=== PATIENT | male | born 1975 | race African-American/Black ===

== ENCOUNTER 2019-07-12 08:29 | Inpatient (IN) ==
[2019-07-12] MEDS ORDERED: ATIVAN ONE (08:55)
[2019-07-12] MEDS ORDERED: ASPIRIN PO ONE (08:56)
[2019-07-12] MEDS ORDERED: ASPIRIN PR ONE (08:56)
[2019-07-12] MEDS ORDERED: ZOFRAN IV ONE (08:56)
[2019-07-12] MEDS ORDERED: ATIVAN IV ONE (08:56)
[2019-07-12] MEDS ORDERED: ZOFRAN ONE (08:59)
--- NOTE | 2019-07-12 09:04 | PROVIDER DOCUMENTATION ---
HPI-Chest Pain - General Stated Complaint: CP, VOMITING, FACIAL DROOPING Time Seen by Provider: 07/12/19 08:40 Source: patient, family Allergies/Adverse Reactions: Patient Allergies Allergy/AdvReac Type Severity Reaction Status Date / Time No Known Allergies Allergy Verified 07/12/19 09:05 Home Medications: Home Medication List Medication Instructions Recorded Confirmed Last Taken Type NK [No Home Medications] 07/12/19 07/12/19 Unknown History - History of Present Illness-CP Nature of Presenting Problem: vomiting 0500, then CP AND SOB, HYPERVENTILATION, SPASM, DROOP OF RIGHT MOUTH PER PT'S , TRANSIENTLY UNRESPONSIVE PER PT . HAS INTERMITTENT CP OR ABNL PALPITAIONS. NO DOCTOR. NO KNOWN HEALTH PROBLEMS. NKDA. NO RECENT FECVER OR ILLNESS. + ASOC SOB, VOMITING. Review of Systems - Adult - REVIEW OF SYSTEMS - ADULT Constitutional: reports: no symptoms reported Eyes: reports: no symptoms reported Ears, Nose, Mouth & Throat: reports: no symptoms reported Cardiovascular: reports: see HPI Respiratory: reports: see HPI Gastrointestinal: reports: no symptoms reported, vomiting Genitourinary: reports: no symptoms reported Musculoskeletal: reports: no symptoms reported Integumentary: reports: no symptoms reported Neurological: reports: no symptoms reported Psychiatric: reports: no symptoms reported Endocrine: reports: no symptoms reported Hematologic/Lymphatic: reports: no symptoms reported Allergic/Immunologic: reports: no symptoms reported All Other Systems: Reviewed and Negative Past History - Adult - PAST MEDICAL HISTORY-ADULT Review of Records: reports: Nursing Assessment Review, Medications Reviewed, Social history reviewed & non-contributory. Major Childhood Illnesses: reports: denies history Cardiovascular: reports: denies history Respiratory: reports: denies history Gastrointestinal: reports: denies history Obstetrical/Gynecological: reports: denies history Genitourinary: reports: denies history Musculoskeletal: reports: denies history Neurological: reports: denies history Endocrine/Immune: reports: denies history Other Conditions: reports: denies history Physical Exam-General - PHYSICAL EXAM-ADULT Initial Vital Signs Reviewed: Yes (DIAST BP 108) - CONSTITUTIONAL General Appearance: moderate distress - EYES Eyes: PERRL/EOMI - HEAD, EARS, NOSE, MOUTH & THROAT HENMT: normocephalic/atraumatic, moist mucous membranes - NECK Neck: non-tender, full range of motion, supple - RESPIRATORY Respiratory: lungs clear, normal breath sounds, other (TACHYNEA,HYPERVENT) - CARDIOVASCULAR Cardiovascular: normal peripheral pulses, bradycardia (MILD/ 55) - GASTROINTESTINAL (ABDOMEN) Abdominal Exam: non tender, soft - MUSCULOSKELETAL Back Exam: normal inspection, no CVA tenderness Extremity: normal range of motion, non-tender, normal gait, normal inspection - SKIN Integumentary: normal color, normal turgor, abrasion(s) - NEUROLOGIC Neurologic: lathe hand II-XII nml as tested, grossly normal, no motor/sensory deficits - PSYCHIATRIC Psych/Mental Status: normal mood/affect, normal thought content, normal thought process, oriented x 3 - HEART Score HEART Score: History: Moderately Suspicious HEART Score: ECG: Non-Specific Repolarization Disturbance/LBBB/PM HEART Score: Age: 45-65 Years HEART Score: Risk Factors for Atherosclerotic Disease: No Risk Factors Known HEART Score: Troponin: < or = Normal Limit Total HEART Score:: 3 Progress - PLAN OF CARE/RESULTS Progress/Plan/Lab Results: Vital Signs - 8 hr 07/12/19 08:49 07/12/19 08:57 07/12/19 09:00 Temperature Pulse Rate 61 59 L 54 L Respiratory Rate 27 H 33 H 30 H Blood Pressure 142/108 139/95 O2 Sat by Pulse Oximetry 98 100 07/12/19 09:02 Temperature 97.5 F L Pulse Rate 56 L Respiratory Rate 29 H Blood Pressure 140/87 O2 Sat by Pulse Oximetry 99 Laboratory Results - last 24 hr 07/12/19 07/12/19 07/12/19 08:40 08:40 08:40 WBC 7.89 RBC 5.92 Hgb 14.2 Hct 43.6 MCV 73.6 L MCH 24.0 L MCHC 32.6 L RDW Std Deviation 16.2 H Plt Count 161 MPV 12.2 H Immature Gran % (Auto) 0.3 Neut % (Auto) 70.4 Lymph % (Auto) 20.5 [place]anan % (Auto) 8.0 Eos % (Auto) 0.5 Baso % (Auto) 0.3 Immature Gran # (Auto) 0.02 Neut # (Auto) 5.56 Lymph # (Auto) 1.62 [place]anan # (Auto) 0.63 H Eos # (Auto) 0.04 Baso # (Auto) 0.02 PT INR D-Dimer, Quantitative < 0.27 Specimen Type Sample Site pH pCO2 pO2 HCO3 Base Excess Oxyhemoglobin ABG O2 Sat (Calculated) ABG O2 Saturation ABG Carboxyhemoglobin ABG Methemoglobin Christo Test A-a O2 Difference Total Hemoglobin Lactate Blood Gas Modality FiO2 % Sodium 143 Potassium 4.0 Chloride 107 Carbon Dioxide 18 L Anion Gap 18 BUN 13 Creatinine 1.1 Estimated GFR/1.73 m2 > 60 BUN/Creatinine Ratio 12 Glucose 137 H Calculated Osmolality 287 Calcium 9.3 Total Bilirubin 0.81 AST 30 ALT 37 Alkaline Phosphatase 74 Creatine Kinase 343 H Creatine Kinase Index 1.0 CK-MB (CK-2) 3.43 Troponin T Tpx-[id number] Pept Total Protein 7.4 Albumin 4.7 Globulin 2.7 Albumin/Globulin Ratio 1.7 Lipase 28 Plasma Lactate Free T4 Urine Source Urine Color Urine Turbidity Urine pH Ur Specific [place] Urine Protein Ur Glucose (Stick) Ur Ketones (Stick) Urine Blood Urine Nitrite Urine Bilirubin Urobilinogen Dipstick Urine Leukocytes Urine WBC (Auto) Urine RBC (Auto) U Epithel Cells (Auto) Urine Bacteria (Auto) Urine Crystals Small Round Cells Urine Casts Urine Yeast-like Cells Urine Opiates Screen Ur Oxycodone Screen Ur Methadone, Qual Ur Barbiturates Screen Ur Phencyclidine Scrn Ur Amphetamines Screen U Benzodiazepines Scrn Urine Cocaine Screen U Cannabinoids Screen 07/12/19 07/12/19 07/12/19 08:40 08:40 08:40 WBC RBC Hgb Hct MCV MCH MCHC RDW Std Deviation Plt Count MPV Immature Gran % (Auto) Neut % (Auto) Lymph % (Auto) [place] % (Auto) Eos % (Auto) Baso % (Auto) Immature Gran # (Auto) Neut # (Auto) Lymph # (Auto) [place] # (Auto) Eos # (Auto) Baso # (Auto) PT 12.2 INR 0.89 D-Dimer, Quantitative Specimen Type Sample Site pH pCO2 pO2 HCO3 Base Excess Oxyhemoglobin ABG O2 Sat (Calculated) ABG O2 Saturation ABG Carboxyhemoglobin ABG Methemoglobin Christo Test A-a O2 Difference Total Hemoglobin Lactate Blood Gas Modality FiO2 % Sodium Potassium Chloride Carbon Dioxide Anion Gap BUN Creatinine Estimated GFR/1.73 m2 BUN/Creatinine Ratio Glucose Calculated Osmolality Calcium Total Bilirubin AST ALT Alkaline Phosphatase Creatine Kinase Creatine Kinase Index CK-MB (CK-2) Troponin T < 0.010 Bcl-[id number] Pept 19 Total Protein Albumin Globulin Albumin/Globulin Ratio Lipase Plasma Lactate Free T4 Urine Source Urine Color Urine Turbidity Urine pH Ur Specific [place] Urine Protein Ur Glucose (Stick) Ur Ketones (Stick) Urine Blood Urine Nitrite Urine Bilirubin Urobilinogen Dipstick Urine Leukocytes Urine WBC (Auto) Urine RBC (Auto) U Epithel Cells (Auto) Urine Bacteria (Auto) Urine Crystals Small Round Cells Urine Casts Urine Yeast-like Cells Urine Opiates Screen Ur Oxycodone Screen Ur Methadone, Qual Ur Barbiturates Screen Ur Phencyclidine Scrn Ur Amphetamines Screen U Benzodiazepines Scrn Urine Cocaine Screen U Cannabinoids Screen 07/12/19 07/12/19 07/12/19 08:40 08:48 09:17 WBC RBC Hgb Hct MCV MCH MCHC RDW Std Deviation Plt Count MPV Immature Gran % (Auto) Neut % (Auto) Lymph % (Auto) [place] % (Auto) Eos % (Auto) Baso % (Auto) Immature Gran # (Auto) Neut # (Auto) Lymph # (Auto) [place] # (Auto) Eos # (Auto) Baso # (Auto) PT INR D-Dimer, Quantitative Specimen Type ARTERIAL Sample Site L RADIAL pH 7.43 pCO2 34 L pO2 80 HCO3 24.0 Base Excess -1.1 Oxyhemoglobin 93.1 L ABG O2 Sat (Calculated) 18.1 ABG O2 Saturation 98.1 ABG Carboxyhemoglobin 4.10 H ABG Methemoglobin 1.0 Christo Test YES A-a O2 Difference 27.0 Total Hemoglobin 13.8 Lactate 2.70 H Blood Gas Modality ROOM AIR FiO2 % 21.0 Sodium Potassium Chloride Carbon Dioxide Anion Gap BUN Creatinine Estimated GFR/1.73 m2 BUN/Creatinine Ratio Glucose Calculated Osmolality Calcium Total Bilirubin AST ALT Alkaline Phosphatase Creatine Kinase Creatine Kinase Index CK-MB (CK-2) Troponin T Nsy-G-Sijyhlwmhnm Pept Total Protein Albumin Globulin Albumin/Globulin Ratio Lipase Plasma Lactate 4.6 H* Free T4 1.15 Urine Source Urine Color Urine Turbidity Urine pH Ur Specific [place] Urine Protein Ur Glucose (Stick) Ur Ketones (Stick) Urine Blood Urine Nitrite Urine Bilirubin Urobilinogen Dipstick Urine Leukocytes Urine WBC (Auto) Urine RBC (Auto) U Epithel Cells (Auto) Urine Bacteria (Auto) Urine Crystals Small Round Cells Urine Casts Urine Yeast-like Cells Urine Opiates Screen Ur Oxycodone Screen Ur Methadone, Qual Ur Barbiturates Screen Ur Phencyclidine Scrn Ur Amphetamines Screen U Benzodiazepines Scrn Urine Cocaine Screen U Cannabinoids Screen 07/12/19 07/12/19 10:15 10:15 WBC RBC Hgb Hct MCV MCH MCHC RDW Std Deviation Plt Count MPV Immature Gran % (Auto) Neut % (Auto) Lymph % (Auto) [place] % (Auto) Eos % (Auto) Baso % (Auto) Immature Gran # (Auto) Neut # (Auto) Lymph # (Auto) [place] # (Auto) Eos # (Auto) Baso # (Auto) PT INR D-Dimer, Quantitative Specimen Type Sample Site pH pCO2 pO2 HCO3 Base Excess Oxyhemoglobin ABG O2 Sat (Calculated) ABG O2 Saturation ABG Carboxyhemoglobin ABG Methemoglobin Christo Test A-a O2 Difference Total Hemoglobin Lactate Blood Gas Modality FiO2 % Sodium Potassium Chloride Carbon Dioxide Anion Gap BUN Creatinine Estimated GFR/1.73 m2 BUN/Creatinine Ratio Glucose Calculated Osmolality Calcium Total Bilirubin AST ALT Alkaline Phosphatase Creatine Kinase Creatine Kinase Index CK-MB (CK-2) Troponin T Ako-N-Bhnzhqioboo Pept Total Protein Albumin Globulin Albumin/Globulin Ratio Lipase Plasma Lactate Free T4 Urine Source CLEAN CATCH Urine Color YELLOW Urine Turbidity CLEAR Urine pH 7.0 Ur Specific [place] 1.022 Urine Protein TRACE A Ur Glucose (Stick) NEGATIVE Ur Ketones (Stick) NEGATIVE Urine Blood NEGATIVE Urine Nitrite NEGATIVE Urine Bilirubin NEGATIVE Urobilinogen Dipstick NORMAL Urine Leukocytes NEGATIVE Urine WBC (Auto) <10 Urine RBC (Auto) <10 U Epithel Cells (Auto) <10 Urine Bacteria (Auto) NEGATIVE Urine Crystals NONE SEEN Small Round Cells NONE SEEN Urine Casts NONE SEEN Urine Yeast-like Cells NONE SEEN Urine Opiates Screen NONE DETECTED Ur Oxycodone Screen NONE DETECTED Ur Methadone, Qual NONE DETECTED Ur Barbiturates Screen NONE DETECTED Ur Phencyclidine Scrn NONE DETECTED Ur Amphetamines Screen NONE DETECTED U Benzodiazepines Scrn NONE DETECTED Urine Cocaine Screen NONE DETECTED U Cannabinoids Screen PRESUMPTIVE POSITIVE A Orders Category Date Time Status Cardiac Monitoring DIRECTED Care 07/12/19 08:57 Active Cardiac Monitoring DIRECTED Care 07/12/19 08:57 Active Oxygen Therapy- ED Nursing DIRECTED Care 07/12/19 08:57 Active Saline Loc NOW Care 07/12/19 08:57 Active Saline Loc NOW Care 07/12/19 08:57 Active Update & Confirm Home Medicati ROUTINE Care 07/12/19 12:11 Active CHEST-PORTABLE [RAD] Stat Exams 07/12/19 08:[address] HEAD W/O CONTRAST [CT] Stat Exams 07/12/19 12:08 Ordered ABG [RESP] Routine Lab 07/12/19 09:17 Completed CBC WITH ELECTRONIC DIFF [HEME] Stat Lab 07/12/19 08:40 Completed CK PROFILE [SP CHEM] Stat Lab 07/12/19 08:40 Completed COMPREHENSIVE METABOLIC PANEL [CHEM] Stat Lab 07/12/19 08:40 Completed D-DIMER [COAG] Stat Lab 07/12/19 08:40 Completed FREE T4 Stat Lab 07/12/19 08:40 Completed LACTATE, PLASMA [CHEM] Stat Lab 07/12/19 08:48 Completed LACTATE, PLASMA [CHEM] Stat Lab 07/12/19 11:45 Uncollected LIPASE [CHEM] Stat Lab 07/12/19 08:40 Completed PRO B-NATRIURETIC PEPTIDE Stat Lab 07/12/19 08:40 Completed PROTIME WITH INR [COAG] Stat Lab 07/12/19 08:40 Completed PTT [COAG] Stat Lab 07/12/19 09:07 Ordered TROPONIN T Stat Lab 07/12/19 08:40 Completed TROPONIN T Stat Lab 07/12/19 11:45 Uncollected URINALYSIS W/POSS RFLX CULT [URINALYSIS] Stat Lab 07/12/19 10:15 Completed URINE DRUG SCREEN Stat Lab 07/12/19 10:15 Completed URINE MANUAL MICROSCOPIC [URINALYSIS] Stat Lab 07/12/19 10:15 Completed 0.9% Sodium Chloride Inj [Ns] 1,000 ml Med 07/12/19 12:11 Active IV 100 mls/hr 0.9% Sodium Chloride Inj [Ns] 1,000 ml Med 07/12/19 09:45 Discontinued IV 999 mls/hr Aspirin Med 07/12/19 08:56 Discontinued 300 mg MA NOW ONE Aspirin Med 07/12/19 08:56 Discontinued 325 mg PO NOW ONE Lorazepam [Ativan] Med 07/12/19 08:56 Discontinued 1 mg IV NOW ONE Lorazepam [Ativan] Med 07/12/19 08:55 Discontinued 2 mg .ROUTE .STK-MED ONE Metoclopramide [Reglan] Med 07/12/19 10:19 Discontinued 10 mg IV NOW ONE Ondansetron [Zofran] Med 07/12/19 08:59 Discontinued 4 mg .ROUTE .STK-MED ONE Ondansetron [Zofran] Med 07/12/19 08:56 Discontinued 4 mg IV NOW ONE CP/SOB/Palp >45 yrs of Age Stat Oth 07/12/19 08:56 Ordered EKG [EKG] Stat Ther 07/12/19 08:39 Draft EKG [EKG] Stat Ther 07/12/19 08:47 Draft EKG [EKG] Stat Ther 07/12/19 08:57 Draft EKG [EKG] Stat Ther 07/12/19 08:57 Draft Echo Spec/Color Doppler Routine Ther 07/12/19 12:10 Ordered Result Diagrams: 07/12/19 08:40 07/12/19 08:40 - CONSULTS/PCP/HOSPITALIST Notification #1 *Consult/PCP/Hospitalist*: RAFITA COHN Time Discussed: 11:50 Consult Disposition: Admit Departure - Departure Date of Disposition Decision: 07/12/19 Time of Disposition Decision: 12:22 DIAGNOSIS: Chest pain, Vomiting, Lactic acid acidosis, Alcohol abuse, daily use Disposition: ADMITTED INPATIENT 09 Certified Medical Emergency: Emergent Condition: Stable Referrals and Follow-Ups: None,PCP [Primary Care Provider] - Discharge Education: Steps to Quit Smoking, [id number] - Critical Care Note This patient required my direct & personal management of CC.: No Attestation - Physician/ NAOMI Attestation The physician spent face to face time with patient:: Yes Advanced Practice Provider documentation review:: Supervising physician onsite and consulted in the evaluation and care of this patient. The physician did have a face to face encounter with the patient.
[2019-07-12 09:17] LABS: BASO# 0.02 X1000 (0.0-0.2); BASO% 0.3 % (0.0-0.8); EOS# 0.04 X1000 (0.0-0.7); EOS% 0.5 % (0.0-10.0); HEMATOCRIT 43.6 % (42.0-52.0); HEMOGLOBIN 14.2 g/dL (14.0-18.0); IMM GRAN# 0.02 X1000 (0.0-0.04); IMM GRAN% 0.3 % (0.0-0.5); LYMPH# 1.62 X1000 (1.2-3.4); LYMPH% 20.5 % (20.5-51.1); MCHC 32.6 g/dL (33-37); MCV 73.6 FL (81-99); MONO# 0.63 X1000 (0.11-0.59); MPV 12.2 FL (7.4-10.4); NEUT# 5.56 X1000 (1.4-6.5); NEUT% 70.4 % (42.2-75.2); PLT 161 X1000 (130-400); RBC 5.92 XMIL (4.7-6.1); RDW 16.2 % (11.5-14.5); WBC 7.89 X1000 (4.8-10.8)
[2019-07-12 09:27] LABS: ALLEN TEST YES; BE -1.1 mmoll (-3.0-3.0); BLOOD TYPE ARTERIAL; O2(CT) 18.1 mL/dL (15.0-23.0); O2HB 93.1 % (95.0-99.0); PCO2(98.6) 34 mmHg (35-45); PO2(98.6) 80 mmHg (60-100); SAMPLE BLOOD; SAO2 98.1 % (95.0-100.0); THB 13.8 g/dL (11.5-17.4); pH(98.6) 7.43 (7.35-7.45)
[2019-07-12 09:28] LABS: MODALITY ROOM AIR
[2019-07-12 09:36] LABS: INR 0.89; PROTIME 12.2 Seconds (11.0-16.0)
--- NOTE | 2019-07-12 09:44 | Diag Imaging Result Doc PS360 ---
EXAM: CHEST-PORTABLE 07/12/2019 HISTORY: cp TECHNIQUE: AP portable upright at 0926 COMMENT: There is borderline cardiomegaly. The lungs are clear. There are no previous studies. IMPRESSION: Cardiomegaly. Electronically signed by Jamel Bruno 07/12/2019 9:42 AM
[2019-07-12] MEDS ORDERED: NS 1,000 ML IV ONE ×2 (09:45→12:11)
[2019-07-12 10:19] LABS: AGAP 18; ALB/GLOB RATIO 1.7; ALBUMIN 4.7 g/dL (3.5-5.0); ALKALINE PHOSPHATASE 74 U/L (32-122); BUN 13 mg/dL (8-22); CALCIUM 9.3 mg/dL (8.8-10.2); CHLORIDE 107 mmol/L (98-107); COSMO 287; CREATININE 1.1 mg/dL (0.7-1.2); ESTIMATED GFR > 60; GLUCOSE 137 mg/dL (70-104); GOT 30 U/L (10-34); GPT 37 U/L (10-44); LIPASE 28 U/L (13-60); SODIUM 143 mmol/L (136-145); TCO2 18 mmol/L (25-35); TOTAL BILIRUBIN 0.81 mg/dL (0.20-1.00); TOTAL PROTEIN 7.4 g/dL (6.3-8.3)
[2019-07-12] MEDS ORDERED: REGLAN IV ONE (10:19)
[2019-07-12 10:21] LABS: URINE SOURCE CLEAN CATCH
[2019-07-12 10:25] LABS: CK PROFILE 343 U/L (24-204)
--- NOTE | 2019-07-12 10:27 | ED EKG INTERP ---
This chart was entered by Aline Anderson Scribe, acting as scribe for Des Mccauley MD. EKG Interpretation - EKG Time of EKG reading by physician:: 08:37 EKG Read and Signed by:: Des Mccauley EKG Interpretation (*Must complete 3 of following elements*): Abnormal Rate: 68 Rhythm: afib with occ atrial paced complexes [place]: right QRS: normal MT Interval: normal ST Wave: normal Comments: nonspecific intraventricular conduction delay - EKG # 2 Time of EKG reading by physician:: 08:35 EKG Read and Signed by:: Des Mccauley EKG Interpretation (*Must complete 3 of following elements*): Abnormal Rate: 70 Rhythm: nsr [place]: normal QRS: normal MT Interval: normal ST Wave: normal Comments: anteroseptal infarct, age undetermined Attestation - Physician/ NAOMI Attestation Patient care was provided by Advanced Practice Provider:: No The physician spent face to face time with patient:: Yes Advanced Practice Provider documentation review:: Supervising physician onsite and consulted in the evaluation and care of this patient. The physician did have a face to face encounter with the patient. This chart was documented by the indicated scribe, (Aline Anderson Scribe) and accurately reflects the services I performed and decisions made by me, Des Mccauley MD, as attested by the provider's signature.
[2019-07-12 10:41] LABS: BILIRUBIN URINE NEGATIVE (NEGATIVE); BLOOD URINE NEGATIVE (NEGATIVE); COLOR YELLOW; GLUCOSE URINE NEGATIVE (NEGATIVE); KETONE URINE NEGATIVE (NEGATIVE); LEUKOCYTES URINE NEGATIVE (NEGATIVE); NITRITE URINE NEGATIVE (NEGATIVE); PROTEIN URINE TRACE mg/dL (NEGATIVE); SP GRAVITY URINE 1.022; TURBIDITY URINE CLEAR (CLEAR); UROBILINOGEN URINE NORMAL (NORMAL)
[2019-07-12 10:45] LABS: UR EPITHELIAL CELLS <10 /HPF (<10); URINE BACTERIA NEGATIVE /HPF; URINE RBC <10 /HPF (<10); URINE WBC <10 /HPF (<10)
[2019-07-12 10:46] LABS: UR AMPHETAMINES QUAL NONE DETECTED (NONE DETECT); UR BARBITUATES QUAL NONE DETECTED (NONE DETECT); UR BENZODIAZEPIN QUAL NONE DETECTED (NONE DETECT)
[2019-07-12 10:46] LABS: CK-MB 3.43 ng/mL (0.0-5.0)
[2019-07-12 10:47] LABS: UR CANNABINOIDS QUAL PRESUMPTIVE POSITIVE (NONE DETECT); UR COCAINE QUAL NONE DETECTED (NONE DETECT); UR METHADONE QUAL NONE DETECTED (NONE DETECT); UR OPIATES QUAL NONE DETECTED (NONE DETECT); UR OXYCODONE QUAL NONE DETECTED (NONE DETECT); UR PCP QUAL NONE DETECTED (NONE DETECT)
--- NOTE | 2019-07-12 11:03 | EKG Report ---
Test Performed on : 07/12/2019 08:37:18 AM Test Reason : cp Blood Pressure : / mmHG Vent. Rate : 068 BPM Atrial Rate : 416 BPM P-R Int : 000 ms QRS Dur : 120 ms QT Int : 400 ms P-R-T Axes : 000 090 058 degrees QTc Int : 425 ms Atrial fibrillation. with occasional atrial-paced complexes Rightward axis Nonspecific intraventricular conduction delay Abnormal ECG When compared with ECG of 12-JUL-2019 08:35, (Unconfirmed) Electronic atrial pacemaker has replaced Sinus rhythm. QRS duration has increased Criteria for Anteroseptal infarct are no longer present ST less depressed in Anterior leads Unconfirmed Result
--- NOTE | 2019-07-12 11:03 | EKG Report ---
Test Performed on : 07/12/2019 08:35:24 AM Test Reason : Afib RVR Blood Pressure : / mmHG Vent. Rate : 070 BPM Atrial Rate : 070 BPM P-R Int : 194 ms QRS Dur : 094 ms QT Int : 388 ms P-R-T Axes : 017 078 063 degrees QTc Int : 419 ms Normal sinus rhythm. Anteroseptal infarct , age undetermined Abnormal ECG When compared with ECG of 16-JUN-2018 14:26, [place] interval has decreased Anteroseptal infarct is now present Unconfirmed Result
[2019-07-12 11:06] LABS: URINE CASTS NONE SEEN; URINE CRYSTALS NONE SEEN; URINE SMALL ROUND CELLS NONE SEEN; URINE YEAST NONE SEEN
--- NOTE | 2019-07-12 11:06 | EKG Report ---
Test Performed on : 07/12/2019 08:47:37 AM Test Reason : REPEAT Blood Pressure : / mmHG Vent. Rate : 059 BPM Atrial Rate : 059 BPM P-R Int : 198 ms QRS Dur : 124 ms QT Int : 410 ms P-R-T Axes : 047 086 063 degrees QTc Int : 405 ms Sinus bradycardia. Nonspecific intraventricular conduction delay Borderline ECG When compared with ECG of 12-JUL-2019 08:39, (Unconfirmed) Sinus rhythm. has replaced Atrial fibrillation. Vent. rate has decreased BY 102 BPM Questionable change in QRS duration Criteria for Lateral infarct are no longer present Criteria for Inferior infarct are no longer present Unconfirmed Result
--- NOTE | 2019-07-12 11:06 | EKG Report ---
Test Performed on : 07/12/2019 08:39:27 AM Test Reason : RHYTHM CHANGE Blood Pressure : / mmHG Vent. Rate : 161 BPM Atrial Rate : 065 BPM P-R Int : 000 ms QRS Dur : 236 ms QT Int : 400 ms P-R-T Axes : 000 112 059 degrees QTc Int : 654 ms Atrial fibrillation. with rapid ventricular response. with premature ventricular or aberrantly conduc mahnaz complexes. Nonspecific intraventricular block Lateral infarct , age undetermined Inferior infarct , age undetermined Abnormal ECG When compared with ECG of 12-JUL-2019 08:37, (Unconfirmed) Significant changes have occurred Unconfirmed Result
--- NOTE | 2019-07-12 12:49 | Diag Imaging Result Doc PS360 ---
EXAM: CT HEAD W/O CONTRAST 07/12/2019 HISTORY: facial droop; syncope TECHNIQUE: This exam was performed using automated exposure control, adjustment of mA or kV according to patient size, and/or use of iterative reconstruction technique. COMMENT: There is no evidence of mass effect, bleed, or abnormal extra-axial fluid collection. The calvarium is intact. The visualized paranasal sinuses are within normal limits. Compared to 06/16/2018 the appearance the brain has not changed significantly. IMPRESSION: No evidence of acute intracranial disease. Electronically signed by Jamel Bruno 07/12/2019 12:47 PM
[2019-07-12] MEDS ORDERED: SODIUM CHLORIDE 0.9% INJ PRN (13:17)
[2019-07-12] MEDS ORDERED: PHENERGAN IV PRN (13:17)
--- NOTE | 2019-07-12 13:26 | EKG Report ---
Test Performed on : 07/12/2019 1:23:50 PM Test Reason : palpitations Blood Pressure : / mmHG Vent. Rate : 054 BPM Atrial Rate : 054 BPM P-R Int : 200 ms QRS Dur : 120 ms QT Int : 442 ms P-R-T Axes : 054 105 074 degrees QTc Int : 419 ms Sinus bradycardia. with marked sinus arrhythmia. Rightward axis Left ventricular hypertrophy with QRS widening Abnormal ECG When compared with ECG of 12-JUL-2019 08:47, (Unconfirmed) No significant change was found Confirmed by Lauren HUSSEIN, Scott Núñez ([id number]) on 07/12/2019 6:00:05 PM
[2019-07-12] MEDS: M.V.I.-12 10 ML, FOLIC ACID 1 MG, MAGNESIUM SULFATE 1 GM, THIAMINE 100 MG in NS 1,000 ML IV SCH (14:00)
--- NOTE | 2019-07-12 14:01 | Diag Imaging Result Doc PS360 ---
EXAM: ABDOMEN FLAT/UPRIGHT 07/12/2019 HISTORY: abd pain; vomiting TECHNIQUE: Flat and upright abdomen COMMENT: There is gas in the stomach which is not distended. There is no evidence of bowel obstruction organomegaly or mass. There is a small calcification near the left ischial spine. This is apparently a phlebolith which was present on the CT of 06/16/2018. IMPRESSION: Nonspecific abdomen. Electronically signed by Jamel Bruno 07/12/2019 1:59 PM
[2019-07-12] MEDS ORDERED: ASPIRIN ONE (14:26)
[2019-07-12] MEDS: PROTONIX IV SCH (14:46)
--- NOTE | 2019-07-12 14:55 | HISTORY AND PHYSICAL ---
PRIMARY CARE PROVIDER: No one. CHIEF COMPLAINT: Abdominal pain, nausea, vomiting, chest pain, shortness of breath, palpitations, and the reported a spell of syncope. HISTORY OF PRESENT ILLNESS: Mr. Ash Narvaez is a 44-year-old male with no medical history other than daily marijuana use, daily alcohol use, and a 6 pack of beer a day and daily cigarettes. He now presents with a sudden onset of palpitations this morning, diarrhea and vomiting. The emesis is yellow. The diarrhea was brown and loose, and generalized abdominal pain. He has been feeling fevers and chills today. The who is at the bedside states that she noticed he had had a temporary left facial droop and passed out. His eyes glazed over and became nonverbal which lasted around 1 minute. He was in the bed so he did not have a fall. He has been sweaty and shaky having hot and cold flashes. He does not have the aroma of alcohol in his system. He denies ever having any withdrawal symptoms. It is noted that on the monitor, he is having some bradycardia and he still feels like he is having palpitations along with abdominal discomfort. We will admit. We will watch for alcohol withdrawal. We will treat him with antiemetics for the nausea. He is chest pain-free. He is having some palpitations and some bradycardia. We will put him in the PVC unit to be able to monitor him more closely. I will do some imaging such as an echocardiogram. X-ray does not show anything. The lipase is negative so will complete a further evaluation. It is noted that he has an elevated lactate, and so is likely dehydrated from vomiting and diarrhea. PAST MEDICAL HISTORY: None. SURGICAL HISTORY: Right hand surgery. SOCIAL HISTORY: Half pack per day smoker since the age of 12. Drinks a 6 pack of beer per night. The last time he drank was last night. He smokes around 1 or 2 blunts a day of marijuana. He works as a pipe fitter helper at [employer], and he lives with his . FAMILY HISTORY: Mother's side of the family with high blood pressure. Heart attack in the grandmother, and an unknown cancer on his father's side. There is diabetes, high blood pressure, stroke and unknown cancer/ ALLERGIES: No known drug allergies. HOME MEDICATIONS: None. REVIEW OF SYSTEMS: Fourteen point review of systems are complete and all were negative except those mentioned above in HPI. He is having some anxiety. PHYSICAL EXAMINATION: VITAL SIGNS: Temperature 97.5 degrees, heart rate 56, respiratory rate 29, blood pressure 140/87, and O2 saturation 99% on room air. GENERAL: Mr. Ash Narvaez is a 44-year-old male. He is in no acute distress. He is able to answer questions appropriately. He is anxious as well. HEENT: Atraumatic, normocephalic. Pupils equal, round, and reactive to light. Extraocular movements intact. Mucous membranes are dry. NECK: Trachea midline. CARDIOVASCULAR: S1, S2. Bradycardic rate and rhythm. No rubs, gallops, or murmurs. No lower extremity edema. +2 dorsalis and radial pulses. Negative JVD or carotid bruits. PULMONARY: Clear to auscultation. Bilateral breath sounds. No accessory muscle use or work of breathing noted. GI: Soft. Tender in all 4 quadrants. Positive bowel sounds x4. EXTREMITIES: Moves all extremities equally. Full range of motion. NEUROLOGIC: Alert and oriented x3. Follows commands. Sensory is intact. SKIN: Warm, dry, and intact. LABORATORY DATA: White blood cells 90020. Hemoglobin 14, hematocrit 43, and platelet count 161,000. INR 0.89. D-dimer less than 0.27 ABGs on room air show pH 7.43, pCO2 34, PO2 80, bicarb 24. Base excess -1.1. Saturation 93%. Lactate 2.7, sodium 143, potassium 4.0, BUN 13, and creatinine is 1.1. Glucose 137, calcium 9.3, bilirubin 0.81, AST 30, ALT 37, CK 343. Troponin less than 0.01. ProBNP 19. Albumin 4.7. Serum lactate 4.6. Free T4 1.15. Urinalysis trace protein. Urine drug screen positive for cannabinoids. IMAGING: Head CT with no acute findings. Abdominal x-ray nonspecific abdomen. Chest x-ray with cardiomegaly. Multiple EKGs show atrial fibrillation but they are all sinus bradycardia. Most recent EKG at 1:12 today is normal sinus bradycardia with a rate of 54. QTc 419. ASSESSMENT/PLAN: 1. Near-syncope or syncopal spell. His eyes glazed over and became nonverbal for about a minute per his . He was already lying in bed when it happened. He does have some bradycardia so it could be possible symptomatic bradycardia. He will be on telemetry. We will put him on PVC. We will get an echocardiogram. We will do serial cardiac enzymes. First set is negative. 2. Abdominal pain with nausea, vomiting and diarrhea. Possible viral gastroenteritis. Antiemetics as needed. Abdominal x-ray is negative. 3. Daily marijuana use. Could even possibly be a hyperemesis cannabinoid syndrome, but again can have Zofran or Phenergan. 4. Alcohol abuse. He drinks 6 beers per day, that is what is reported. The last time he drank was yesterday. He denies ever having any withdrawals, but will do banana bag and some Ativan as he is also highly anxious. 5. Anxiety. Ativan p.r.n. 6. Deep venous thrombosis prophylaxis. SCD's. 7. Tobacco abuse. Cessation discussed. Dictated by TERESA Velasquez for Moses Vázquez MD Addendum: Patient seen and examined by myself. Agree with TERESA note. It reflects my assessment and plan. Patient is being admitted for near syncope. Also he is complaining of abdominal and chest pain. Will trend cardiac enzymes and will order CT of abdomen and pelvis and will go from there. cc: TERESA Velasquez MD [facility]IT[facility]
--- NOTE | 2019-07-12 23:32 | ECHO REPORT ---
ORDER DATE: 07/12/2019 MEASUREMENTS: Septal thickness 1.1, left ventricular internal in diastole 4.9, posterior wall thickness 1.1, left ventricular internal diameter in systole 3.5, aortic root 3.1, left atrium 3.9. SUMMARY: 1. Fair quality study. 2. Aortic valve is trileaflet and opens normally on 2-dimensional images. Peak gradient across the aortic valve is less than 5 mmHg. Mitral, tricuspid, and pulmonic valves are without evidence of structural abnormality, with trace mitral regurgitation and trace tricuspid regurgitation. Aortic root is normal in size. 3. Normal left ventricular dimensions demonstrated. Estimated left ventricular ejection fraction appears to be approximately 60%. No regional wall motion abnormalities are evident. Left atrium, right atrium, right ventricle are normal in size with grossly preserved right ventricular systolic function. 4. No pericardial effusion. 5. Inferior vena cava appears very mildly distended suggesting mild elevation in central venous pressure. CONCLUSIONS: 1. No significant valvular abnormality evident. 2. Normal left ventricular systolic function without wall motion abnormality evident. 3. Mild elevation in central venous pressure suggested. cc: MD Romelia Barnett CRNP
[2019-07-12] MEDS ORDERED: MORPHINE IV ONE (23:53)
[2019-07-13] MEDS: ZOFRAN IV PRN ×3 (00:28→19:04)
[2019-07-13] MEDS: NS 1,000 ML IV SCH ×4 (00:29→20:01)
[2019-07-13] MEDS: ATIVAN IV PRN ×2 (00:44→20:13)
[2019-07-13] MEDS: PROTONIX IV SCH ×2 (01:03→13:44)
[2019-07-13] MEDS: SODIUM CHLORIDE 0.9% INJ SCH ×2 (01:03→13:44)
[2019-07-13] MEDS: TYLENOL PO PRN ×2 (03:17→12:17)
[2019-07-13 06:16] LABS: INR 1.04; PROTIME 13.7 Seconds (11.0-16.0)
[2019-07-13 06:38] LABS: BASO# 0.01 X1000 (0.0-0.2); BASO% 0.1 % (0.0-0.8); HEMATOCRIT 37.3 % (42.0-52.0); HEMOGLOBIN 12.3 g/dL (14.0-18.0); LYMPH# 1.68 X1000 (1.2-3.4); LYMPH% 15.2 % (20.5-51.1); MCH 24.3 PG (27-31); MCV 73.6 FL (81-99); MONO# 1.33 X1000 (0.11-0.59); MPV 12.8 FL (7.4-10.4); NEUT# 8.03 X1000 (1.4-6.5); NEUT% 72.7 % (42.2-75.2); PLT 121 X1000 (130-400); RBC 5.07 XMIL (4.7-6.1); RDW 15.7 % (11.5-14.5); WBC 11.05 X1000 (4.8-10.8)
[2019-07-13 06:55] LABS: AGAP 13; ALB/GLOB RATIO 1.7; ALBUMIN 3.7 g/dL (3.5-5.0); BUN 10 mg/dL (8-22); CHLORIDE 107 mmol/L (98-107); COSMO 281; CREATININE 1.1 mg/dL (0.7-1.2); ESTIMATED GFR > 60; GLUCOSE 106 mg/dL (70-104); POTASSIUM 3.6 mmol/L (3.5-5.1); SODIUM 141 mmol/L (136-145); TCO2 21 mmol/L (25-35); TOTAL BILIRUBIN 1.08 mg/dL (0.20-1.00); TOTAL PROTEIN 5.9 g/dL (6.3-8.3)
[2019-07-13 06:56] LABS: ALKALINE PHOSPHATASE 61 U/L (32-122); GOT 20 U/L (10-34); GPT 26 U/L (10-44); MAGNESIUM 2.3 mg/dL (1.5-2.7)
--- NOTE | 2019-07-13 08:13 | EKG Report ---
Test Performed on : 07/13/2019 06:47:27 AM Test Reason : chest pain Blood Pressure : / mmHG Vent. Rate : 066 BPM Atrial Rate : 066 BPM P-R Int : 216 ms QRS Dur : 130 ms QT Int : 410 ms P-R-T Axes : 045 086 046 degrees QTc Int : 429 ms Sinus rhythm. with 1st degree AV block. Nonspecific intraventricular block Abnormal ECG When compared with ECG of 12-JUL-2019 13:23, No significant change was found Confirmed by Lauren HUSSEIN, Scott Núñez ([id number]) on 07/13/2019 1:51:07 PM
[2019-07-13] MEDS: LIBRIUM PO SCH ×3 (08:48→20:16)
[2019-07-13] MEDS: M.V.I.-12 10 ML, FOLIC ACID 1 MG, MAGNESIUM SULFATE 1 GM, THIAMINE 100 MG in NS 1,000 ML IV SCH (10:19)
--- NOTE | 2019-07-13 11:42 | PROGRESS NOTE ---
DATE: 07/13/2019 SUBJECTIVE: The patient reports some episodes of chest pressure. No real chest pain or palpitations on and off during the last night. Also, reports abdominal pain and nausea that is still going on. OBJECTIVE: Vital Signs: Temperature 99.7 degrees, heart rate 63, respiratory rate 19, blood pressure 124/77, and O2 saturation 95% on room air. General: This is a 44-year-old male lying in bed in no acute distress. HEENT: Head is normocephalic and atraumatic. Neck: No JVD noted. No carotid bruits. No lymphadenopathy. No thyromegaly. Cardiovascular: S1, S2 heard. No murmurs, gallops, or rubs. Regular rate and rhythm. Respiratory: Clear bilaterally to auscultation. No work of breathing or using accessory muscles. Abdomen: Soft. General tenderness to palpation but, there are no signs of peritoneal irritation. Bowel sounds present. No organomegaly. Extremities: No clubbing, cyanosis, or edema. Peripheral pulses present in both legs. Neurological: Patient alert and oriented x3. Moves 4 extremities. LABORATORY DATA: 1. White cell count 11.05, hemoglobin 12.3, hematocrit 37.3 and platelet 121,000 with normal BMP and calcium 8.0. Total bilirubin 1.08. Creatine kinase 217. Echocardiogram done yesterday that showed no significant abnormality. Normal left ventricular systolic function without wall motion abnormality. Mild elevation in central venous pressures suggestive. 2. Head CT was unremarkable. ASSESSMENT AND PLAN: 1. Near syncope/chest pressure. That is the reason basically why this patient came to the emergency department. There was information noted by the ER physician that he had right drop mouth but the neurological examination is completely fine now. Just to rule out any seizure disorder, we will order EEG. 2. Chest pressure/new onset atrial fibrillation. That was probably the reason why he was complaining of that chest pressure. We have documented this atrial fibrillation with an EKG performance in the night. There was a report that this patient was bradycardic at some point at admission in the ER. In any case, the echocardiogram that we had reveals that the heart is structurally normal. So far, we have checked cardiac enzymes 3 times in this case of troponin's, and those are negative. Because of new onset atrial fibrillation, I prefer to have Cardiology on board. We will see what they have to say. 3. Daily marijuana abuse. That is probably the reason why this patient is vomiting. I talked to him about hyperemesis cannabinoid syndrome. He is receiving Zofran and Phenergan. He is still complaining of abdominal pain and also nausea so that is why I prefer to get a CT of the abdomen with and without contrast. We will go from there. 4. Alcohol abuse. Patient drinks 6 beers per day. He will be placed on Librium 25 mg p.o. q.6 hours for prevention of alcohol withdrawal. That will help with baseline anxiety as well. 5. Deep vein thrombosis prophylaxis with sequential compression devices. 6. Tobacco abuse. Patient encouraged to stop smoking tobacco. 7. Disposition: I think this patient is hemodynamically stable so, we are going to transfer him to [facility]. Actually, that was the unit that he was supposed to be transferred to, but because of lack of bed he ended up being in an intensive care unit bed today. cc: Moses Vázquez MD MTDD
--- NOTE | 2019-07-13 13:33 | Diag Imaging Result Doc PS360 ---
EXAM: CT ABDOMEN/PELVIS W/WO CONTRAS INDICATION: abdomina pain, persistent nausea TECHNIQUE: This exam was performed using automated exposure control, adjustment of mA or kV according to patient size, and/or use of iterative reconstruction technique. COMPARISON: 06/16/2018 FINDINGS: There is minimal subsegmental atelectasis at the lung bases. There is a calcified granuloma at the medial left lower lobe. There are a few stable low dense hepatic foci that likely represent tiny cysts. The gallbladder, spleen, pancreas, and adrenal glands are unremarkable. There are no renal or ureteral stones identified and there is no hydronephrosis. The kidneys are unremarkable, otherwise. The appendix is normal. There is no evidence of focal bowel wall thickening or bowel obstruction. The remainder of the GI tract is grossly unremarkable. No focal inflammatory changes or free abdominal gas is identified. There is no evidence of acute osseous abnormality. IMPRESSION: Essentially stable CT of the abdomen and pelvis with no evidence of acute pathology. Electronically signed by Omega Hardwick 07/13/2019 1:31 PM
--- NOTE | 2019-07-13 14:58 | Carotid Study ---
DATE: 07/12/2019 PROCEDURE: Carotid ultrasound. DATE OF STUDY: 07/12/2019. REQUESTING PROVIDER: Jamil. ROOFING SUBCONTRACTOR: Ivonne. INDICATIONS: Syncope. EQUIPMENT: GetBulb E 9 ultrasound system with a 9 L-D transducer. FINDINGS: Complete diagram of ultrasound images can be seen on scan of the patient's medical record. The peak systolic velocity noted on the right side is in the distal internal carotid artery and is noted to be 80. The peak systolic velocity on the left side is noted in the mid internal carotid artery and is noted to be 83. The calculated internal carotid ratio on the right is 1.03 and left 0.87. Calculated stenosis on the right 0 to 39 percent, left 0 to 39 percent. There appears to be some atherosclerosis, but this does not produce a hemodynamically significant flow-limiting stenosis. Both vertebral arteries were antegrade flow. INTERPRETATION: By strict velocity criteria, no hemodynamically significant flow-limiting stenosis. cc: MD Romelia Alicea CRNP
--- NOTE | 2019-07-13 22:36 | EEG REPORT ---
DATE: 07/13/2019 REFERRING PHYSICIAN: Dr. Gonzalez. INKER: Rikki Ratliff. BACKGROUND INFORMATION: Technique: This is a digitally recorded routine EEG with video. HISTORY: A 44-year-old male patient admitted for altered consciousness, spell with nausea vomiting and diarrhea. There was reported left facial droop, and he was nonverbal. MEDICATIONS: Include Phenergan and Ativan. EEG FINDINGS: This is a technically limited study due to prominent 60 Hz artifact. A 9 to 10 Hz posterior dominant alpha rhythm is seen symmetrically in the occipital regions and attenuates with eye opening. The anterior background at maximal alertness consists of mixed alpha and beta range frequencies. No definite persistent focal slowing. No definite epileptiform discharges. No seizures. Hyperventilation is not performed. Photic stimulation induces a normal driving response. The patient becomes drowsy, but stage II sleep is not seen. EKG demonstrates regular RR intervals. IMPRESSION: Normal routine EEG in the awake and drowsy state. Of note, a normal EEG does not rule out epilepsy. Clinical correlation is recommended. cc: MD Moses Wilkinson MD
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
[2019-07-14] MEDS: LIBRIUM PO SCH ×2 (01:38→08:07)
[2019-07-14] MEDS: PROTONIX IV SCH (01:38)
[2019-07-14] MEDS: NS 1,000 ML IV SCH (04:50)
[2019-07-14 06:44] LABS: AGAP 11; BUN 9 mg/dL (8-22); CALCIUM 7.9 mg/dL (8.8-10.2); CHLORIDE 110 mmol/L (98-107); COSMO 284; CREATININE 1.2 mg/dL (0.7-1.2); ESTIMATED GFR > 60; GLUCOSE 107 mg/dL (70-104); POTASSIUM 3.6 mmol/L (3.5-5.1); SODIUM 143 mmol/L (136-145); TCO2 22 mmol/L (25-35)
[2019-07-14 07:01] LABS: BASO# 0.02 X1000 (0.0-0.2); BASO% 0.3 % (0.0-0.8); EOS# 0.07 X1000 (0.0-0.7); EOS% 0.9 % (0.0-10.0); HEMATOCRIT 37.2 % (42.0-52.0); LYMPH# 2.19 X1000 (1.2-3.4); LYMPH% 28.9 % (20.5-51.1); MCHC 32.3 g/dL (33-37); MCV 74.5 FL (81-99); MONO# 0.89 X1000 (0.11-0.59); MONO% 11.8 % (1.7-9.3); MPV 12.7 FL (7.4-10.4); NEUT% 58.1 % (42.2-75.2); PLT 118 X1000 (130-400); RBC 4.99 XMIL (4.7-6.1); WBC 7.57 X1000 (4.8-10.8)
[2019-07-14 07:20] VITALS: BP 147/85
[2019-07-14] MEDS: M.V.I.-12 10 ML, FOLIC ACID 1 MG, MAGNESIUM SULFATE 1 GM, THIAMINE 100 MG in NS 1,000 ML IV SCH (08:07)
--- NOTE | 2019-07-14 08:16 | EKG Report ---
Test Performed on : 07/14/2019 07:26:45 AM Test Reason : tachycardia Blood Pressure : / mmHG Vent. Rate : 046 BPM Atrial Rate : 046 BPM P-R Int : 200 ms QRS Dur : 126 ms QT Int : 420 ms P-R-T Axes : 044 101 063 degrees QTc Int : 367 ms Sinus bradycardia. Rightward axis Nonspecific intraventricular block Abnormal ECG When compared with ECG of 13-JUL-2019 06:47, QT has shortened Early repolarization Inferior leads (unchanged) Confirmed by Lauren HUSSEIN, Scott Núñez ([id number]) on 07/14/2019 9:20:09 AM
--- NOTE | 2019-07-15 04:09 | DISCHARGE SUMMARY ---
ADMISSION DATE: 07/12/2019 DISCHARGE DATE: 07/14/2019 ADMITTING DIAGNOSES: 1. Near syncopal episode. 2. Abdominal pain with nausea, vomiting, and diarrhea. 3. Marijuana abuse. 4. Alcohol abuse. 5. Anxiety. 6. Tobacco abuse. DISCHARGE DIAGNOSES: 1. Near syncopal episode, resolved. 2. Chest pressure, resolved. 3. Marijuana abuse. 4. Alcohol abuse. 5. Tobacco abuse. PROCEDURES AND FINDINGS: CT of the head shows no evidence of acute intracranial disease. Chest x- ray shows cardiomegaly. EEG shows a normal routine EEG. Echocardiogram shows an ejection fraction of 60% with no significant valvular abnormality, normal left ventricular systolic function without wall motion abnormality. Mild elevation in central venous pressure suggested. EKG shows sinus rhythm with first-degree AV block at a rate of 66 beats per minute. Abdominal x- ray is negative. CT of the abdomen and pelvis is stable with no acute evidence or pathology. CONSULTATIONS: Dr. Blayne Nunes. HOSPITAL COURSE: Mr. Narvaez is a 44-year-old male who was admitted on 07/12/2019. States he started having sudden onset palpitations and started having diarrhea and vomiting. His vomit was yellow. His diarrhea was loose brown and started having abdominal pain. He felt like he was having fever and chills. He admits to daily marijuana abuse and alcohol abuse of 6 beers a day and daily cigarettes. states that she was sitting at the bed with him and noticed she had some facial drooping and he actually passed out. He had a gazed over look in his eyes. He was nonverbal and this lasted for about a minute. He did not have a fall. The patient was noted to be bradycardic on an zoology professor in the ER. The patient was noted to be having palpitations in the ER. The patient was admitted to the ICU unit. He was noted to have an elevated lactate. He was started on IV fluid hydration for dehydration. He was started on Ativan and then subsequently Librium for withdrawals. He was given a banana bag daily. He was given Zofran for his nausea and vomiting and Phenergan. The patient was noted to have cannabinoid hyperemesis syndrome from daily marijuana abuse. The patient was also noted to have chronic alcoholism and tobacco abuse. He was given cessation information on all those things. Symptoms have resolved. The patient is being discharged home today. DISCHARGE LABORATORY DATA: White blood cell count 7.57, hemoglobin 12, hematocrit 37.2, platelet count 118,000. Sodium 143, potassium 3.6, chloride 110, BUN is 9, and creatinine 1.2. GFR greater than 60. Glucose 107, calcium 7.9. DISCHARGE MEDICATIONS: No home medications. DISCHARGE DIET: Resume regular diet as tolerated. DISCHARGE ACTIVITY: Resume regular activity as tolerated. DISCHARGE DISPOSITION INSTRUCTIONS: Discharge to home with self care. Resume all activity as tolerated. Follow up with power generation equipment repairer as tolerated. All further recommendations per power generation equipment repairer. The patient is to refrain from all drug abuse, alcohol and smoking and to follow up with power generation equipment repairer for other further recommendations. Dictated by TERESA Schaeffer for Moses Vázquez MD Addendum: Patient seen and examined by myself. Agree with TERESA note. It reflects my assessment and plan. Patient is being discharged in stable condition. Will be seen by PCP in a week. cc: Moses Vázquez MD MTDD
== END 2019-07-14 10:31 | disposition home or self-care (01) | DRG 309 ==
LOC: ED 08:29 → EDIPHOLD 13:29 → ICU 07-13 00:05 → 2N 07-13 14:42
PROVIDERS: ATTEND Internal Medicine